=== PATIENT | male | born 1960 | race Caucasian/White ===

== ENCOUNTER 2016-10-13 06:50 | Emergency (ER) | payer OTHER, BC ==
[2016-10-13 07:34] VITALS: RESP 16; TEMP 96.6
--- NOTE | 2016-10-13 08:23 | PDOC ---
Shoulder Injury/Pain HPI - General Chief Complaint: Upper Extremity Problem/Injury Stated Complaint: R shoulder pain after pulling at work Date Seen by Provider: 10/13/16 Time Seen by Provider: 07:15 Source: POSITIVE: Patient Exam Limitations: POSITIVE: No limitations Nurse's Notes Reviewed & Considered: Yes - History of Present Illness Initial Comments: The patient is a 56-year-old male who is evaluated in the emergency department with right shoulder pain. 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 Since then he has had a dull ache across the top and back of his shoulder. He reports increased weakness in his right arm with lifting his arm to comb his hair for example or when he is reaching out to grab a pitcher etc. he states that he had a fall 2 years ago at which time he had injured his right shoulder. He was seen by Dr. Pino and had an x-ray and had been prescribed physical therapy. He states that he did physical therapy for about a month however he did not notice any improvement. Since then he has had intermittent episodes of sharp pain with certain movements. Since the injury on he has had constant pain. He has been taking 2 Aleve daily. He states that when looking in the mirror this morning he thought his shoulders appeared asymmetric to him. Have you received a tetanus shot in the past 10 years?: Yes - Patient Home Medications Home Medications: Home Medications Ranitidine HCl [Zantac] 150 mg PO DAILY PRN 09/01/13 Glucosa Lawler 2Kcl/Chondroitin Lawler [Glucosamine & Chondroitin Cap] 1 each PO QD cap 11/06/14 Naproxen Sodium [Aleve] 220 mg PO Q8H PRN 05/08/15 Aspirin [Aspir 81] 1 tab PO DAILY tab 10/04/15 Atorvastatin Calcium [Lipitor] 1 tab PO DAILY tab 10/04/15 Diclofenac Sodium [Voltaren] 75 mg PO BID PRN #30 tablet. 10/13/16 - Patient Allergies Allergies/Adverse Reactions: Allergies Allergy/AdvReac Type Severity Reaction Status Date / Time No Known Allergies Allergy Verified 10/13/16 07:10 Past Medical History - heen HEENT History: Denies History Cardiovascular History: Previous MA, Hyperlipidemia Respiratory History: Denies History Gastrointestinal History: GERD Genitourinary History: Denies History Endocrine History: Denies History Musculoskeletal History: Other (please comment) Prosthesis or Implant: No Additional Musculoskeletal History: Hx of left 5th digit repair. 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 History of Other Communicable Diseases: No Tobacco Use: Never Smoker Alcohol Use: Rarely Substance Use Type: None, Other (please comment) Previous Surgical History: Yes Type / Date of Surgery: LEFT HAND 5TH DIGIT Anesthesia Reactions: No Malignant Hyperthermia: No Significant Family History: No pertinent family hx Past Medical History Reviewed: Reviewed - No Changes ROS - Limitations ROS Limitations: No Limitations Constitution: DENIES: Chills, Fever Cardiovascular: DENIES: Chest Pain Neurological: DENIES: Headache, Tingling, Numbness Eyes: REPORTS: Denies Symptoms ENT: REPORTS: Denies Symptoms Skin: DENIES: Rash Shoulder Injury/Pain Exam - General Appearance General Appearance: POSITIVE: Alert, Cooperative, No Acute Distress - Upper Extremity Shoulder: POSITIVE: Other (Examination of the right shoulder reveals no obvious swelling or deformity, he does have some tenderness to the top of the shoulder extending onto the trapezius muscle posteriorly, he does have pain with abduction past 90 and with reaching forward, he is able to reach behind his back without any significant pain) Neuro/Vascular: POSITIVE: Sensation Normal, Motor Normal - HEENT HEENT: POSITIVE: Head Inspection Nml - Respiratory / CVS Respiratory / CVS: POSITIVE: Breath Sounds Normal, No Respiratory Distress, Heart Sounds Normal, Regular Rate/Rhythm Shoulder Pain/Injury Progress - Results Reviewed by me Xrays/CTs/US Reviewed by me: Yes Radiology Findings: X-ray of the right shoulder reveals no obvious fracture or dislocation - Patient's Progress MDM / ED Course: X-ray findings were discussed with the patient. Given his increased weakness and pain with range of motion I do suspect either tendinitis or even possible tear or other soft tissue injury. He has been having some intermittent symptoms for several years since a fall which is now worse over the past 4 or 5 days since injuring his shoulder last . I did recommend that he follow- up with orthopedic surgery. I did write an order for an MRI of the shoulder is well and he was advised that he could schedule this first or see the orthopedic surgeon first. He was prescribed Voltaren 75 mg twice a day as an anti- inflammatory/pain medicine. He was advised not to use his right arm at work until cleared by the orthopedic surgeon. He'll return to the emergency room if any worsening or change in symptoms. - Consult Counseled: POSITIVE: Patient, RE: Radiology Results, RE: DX, RE: Need for F/U Patient Care Time - Estimated PCT Patient Care Time (In Minutes): 20 Vital Signs - Recent Vital Signs Vital Signs: Vital Signs (Last 8 hours) Temp Pulse Resp BP Pulse Ox 10/13/16 07:12 96.6 F L 64 16 121/93 97 - VS Reviewed Vital Signs Reviewed: Yes Discharge Clinical Impression: Shoulder injury, Shoulder pain Condition: Stable Prescriptions / Orders: Diclofenac Sodium [Voltaren] 75 mg PO BID PRN #30 tablet.dr CROWE Reason: Pain Patient Instructions Given at Discharge: Shoulder Pain (ED) Additional Instructions: Reveal any dislocation or fracture. The x-ray however cannot evaluate soft tissue structures. I suspect that you have some tendinitis or possibly even a tear of the tendon or rotator cuff. Recommend Voltaren 75 mg twice a day as an anti-inflammatory/pain medication. Recommend MRI of the right shoulder and orthopedic follow-up. Return to the emergency room if increased pain, worsening or change in symptoms. Follow Up With: LM MORRIS [Primary Care Provider] -
--- NOTE | 2016-10-13 09:13 | DI ---
XR SHOULDER MIN 2VW,10/13/2016 7:15 AM: Clinical History: Right shoulder pain Previous Exam: October 04, 2015. Findings: 3 views of the right shoulder are obtained, and demonstrate anatomic alignment without fractures. The surrounding soft tissues are unremarkable. The adjacent right lung and chest wall are also unremarka ble. Impression: Normal right shoulder.
== END 2016-10-13 08:08 | disposition home or self-care (01) ==
LOC: ER 06:50
DX: M25.511 Pain in right shoulder (principal); X50.3XXA Overexertion from repetitive movements, initial encounter; Y92.239 Unspecified place in hospital as the place of occurrence of the external cause; Y99.0 Civilian activity done for income or pay
CPT/HCPCS: 73030; 99282; 99283

== ENCOUNTER → 2016-10-13 | Outpatient (CLI) | payer OTHER, BC ==
--- NOTE | 2016-10-14 10:59 | DI ---
MRI UP EXTREMITY JNT W/O CN,10/13/2016 1:55 PM: Clinical History: Right shoulder pain and weakness. Previous Exam: None at this facility. Findings: Multiplanar MR images are obtained through the right shoulder without contrast. Bony alignment is anatomic. No fractures are seen. Marrow signal is preserved. There is degenerative hypertrophy of the right acromioclavicular joint causing mass effect on the myotendinous junction of the underlying supraspinatus tendon. The acromion process demonstrates some mild lateral downsloping. The supraspinatus tendon demonstrates increased signal consistent with tendinosis near its insertion on the greater tubercle. The infraspinatus tendon is also intact with some very mild tendinosis at its distal insertion. The subscapularis and teres minor tendons are normal. The long head of the biceps tendon follows a no rmal course through the rotator cuff interval and is well situated within the bicipital groove. Overlying musculature demonstrates normal signal. The major vascular flow voids are unremarkable. There is a small anterior sub-labral foramen. The glenoid labrum is otherwise unremarkable. The glenohumeral ligaments are normal a scars evaluated although not well seen on this exam. Impression: 1. Tendinosis of the distal supraspinatus and infraspinatus muscles. 2. Extensive degenerative hypertrophy of the acromioclavicular joint causing some mass effect on the underlying supraspinatus tendon.
== END ==
LOC: MRI 13:50
PROVIDERS: ATTEND Personal Emergency Response Attendant
DX: M25.511 Pain in right shoulder (principal); M65.811 Other synovitis and tenosynovitis, right shoulder; M19.011 Primary osteoarthritis, right shoulder
CPT/HCPCS: 73221

== ENCOUNTER → 2016-10-20 | Outpatient (CLI) | payer OTHER, BC ==
--- NOTE | 2016-10-20 15:49 | DI ---
CERVICAL SPINE SERIES, 10/20/2016 2:50 PM: Clinical History: Neck pain. Previous Exam: None at this facility. Upright AP and lateral views are submitted. The vertebral bodies are normal in height and size. The C 2-3 and C3-4 disc spaces are of normal height. The disc spaces from C4-5 through C7-T1 show moderatel y severe narrowing with anterior and mild posterior bony proliferative change at C5-6 and C6-7. Poste rior alignment and lateral masses are normal. C1 articulates normally with C2 and the occiput. Prever tebral soft tissue planes are normal. Both lung apices are normal. Reading: Chronic disc space narrowing from C4-5 through C7-T1.
== END ==
LOC: ORTHO 15:01
PROVIDERS: ATTEND Orthopaedic Surgery
DX: M54.2 Cervicalgia (principal); M48.02 Spinal stenosis, cervical region
CPT/HCPCS: 72040

== ENCOUNTER → 2016-10-24 | Outpatient (CLI) | payer OTHER, BC ==
--- NOTE | 2016-10-24 11:19 | DI ---
MRI CERVICAL SPINE SCAN, 10/24/2016 10:00 AM: Clinical History: Neck pain. Previous Exam: None. Sequences: Sagittal T1and T2 weighted. Axial T2 PLUS and FE 3D DUAL. Coronal T1 scans through the upp er cervical spine. The vertebral bodies are of normal height and size. There is disc space narrowing at C4-5 through C6- 7 and all cervical disc spaces show desiccation change. The cervical cord and cerebellar tonsils are normal. The C2-3 and C3-4 disc spaces are normal. C4-5 has a right-sided lateral disc herniation that is displacing the cord posteriorly on the right side. There is no canal or neural foraminal stenosis . C5-6 has a right-sided broad-based disc herniation that is also displacing the cord posteriorly on the right side. There is right neural foraminal stenosis without canal or left neural foraminal steno sis. C6-7 has a circumferentially bulging but not herniated disc without canal or neural foraminal st enosis. The disc spaces from C7-T1 through T3-4 are normal. Readin. There are right-sided disc herniations at C4-5 and C5-6 without canal stenosis or left neural for aminal stenosis. There is no right neural foraminal stenosis at C4-5, but there is right neural sourav inal stenosis at C5-6. 2. There is a bulging but not herniated disc without canal or neural foraminal stenosis at C6-7. 3. The disc spaces at C2-3, C3-4, and from C7-T1 through T3-4 are normal.
== END ==
LOC: MRI 09:54
PROVIDERS: ATTEND Orthopaedic Surgery
DX: M54.2 Cervicalgia (principal); M50.222 Other cervical disc displacement at C5-C6 level; M47.812 Spondylosis without myelopathy or radiculopathy, cervical region
CPT/HCPCS: 72141